=== PATIENT | male | born 1965 | race Caucasian/White ===

== ENCOUNTER 2016-06-06 17:08 | Emergency (ER) | payer MEDICAID ==
[~2016-06-06] VITALS: Wt 60.5 kg
[~2016-06-06 17:08] MED LIST: BACTDS PO; CEPH-443 PO; CHOL400T10 PO; LEVE250T66 PO; LORA10TA3 PO; NAPR-688 PO; TAMS0.4C2 PO
[2016-06-06] MEDS ORDERED: ACETAMINOPHEN 325 MG TAB PO ONE (19:30)
[2016-06-06] MEDS ORDERED: ACET325T33 PO (20:13)
--- NOTE | 2016-06-06 21:34 | ERD ---
ER Documentation Chief Complaint Date/Time DATE: 06/06/16 TIME: 21:29 Chief Complaint headache with blurry vision with high blood pressure. no neuro deficit HPI This is a 50-year-old male who presents to the emergency department complaining of global headache for the past 3 days. Patient states that he rates around 8 out of 10. He states that he was at the [facility] today in which they told him he had a high blood pressure and that is why he came to the ER. Patient denies any nausea, vomiting, lethargy or trouble behavior. Patient states that he does have blurry vision ROS All systems reviewed and are negative except as per history of present illness. Medications Home Meds Active Scripts Acetaminophen* (Tylenol*) 325 Mg Tablet, 2 TAB PO Q6 Y for PAIN AND OR ELEVATED TEMP, #20 TAB Prov:OSMIN SIMS PA-C 06/06/16 Sulfamethoxazole-Trimethoprim* (Bactrim* DS) 800-160 Mg Tab, 1 TAB PO BID for 10 Days, TAB Prov:NANDINI RUANO MD 10/24/15 Cephalexin* (Keflex*) 500 Mg Capsule, 500 MG PO QID for 10 Days, CAP Prov:NANDINI RUANO MD 10/24/15 Reported Medications Naproxen* (Naproxen*) 500 Mg Tablet, 500 MG PO BID Y for PAIN AND/OR INFLAMMATION, TAB 10/24/15 Loratadine* (Loratadine*) 10 Mg Tablet, 10 MG PO DAILY, #30 TAB 10/24/15 Cholecalciferol* (Vitamin D*) 400 Unit Tablet, 400 UNIT PO DAILY, TAB 10/24/15 Tamsulosin Hcl* (Tamsulosin Hcl*) 0.4 Mg Cap.er.24h, 0.8 MG PO HS, CAP 10/24/15 Levetiracetam* (Keppra*) 250 Mg Tab, 250 MG PO BID, TAB 10/24/15 Allergies Allergies: Coded Allergies: No Known Allergy (Unverified , 10/24/15) PMhx/Soc History of Surgery: No Anesthesia Reaction: No Hx Neurological Disorder: No Hx Respiratory Disorders: Yes (copd; bph; ra; hep c) Hx Cardiac Disorders: No Hx Psychiatric Problems: No Hx Miscellaneous Medical Probl: No Hx Alcohol Use: No Hx Substance Use: No Hx Tobacco Use: No Smoking Status: Never smoker Physical Exam Vitals Vital Signs Date Time Temp Pulse Resp B/P Pulse Ox O2 Delivery O2 Flow Rate FiO2 06/06/16 17:17 98.8 72 20 139/91 98 Physical Exam GENERAL: well-developed/well-nourished, in no apparent distress, non-toxic appearing HENT: NC/AT, bilateral tympanic membrane is normal with good cone of light, nares patent, oropharynx clear without exudates EYES: Conjunctiva normal, PERRLA, EOMI, no nystagmus noted NECK: Supple, no lymphadenopathy PULM: CTA bilaterally, no rales, rhonchi, or wheezing heard CV: Normal S1S2, RRR, good capillary refill GI: Soft, non-distended, normal bowel sounds, non-tender BACK: No midline tenderness, no masses, No CVAT EXT: No clubbing, cyanosis, or edema NEURO: Alert and orientated to person, place, and time. CN II-IIX intact. Gait and coordination were normal. Hand transit planning manager strength were equal and within normal limits SKIN: Intact, normal turgor PSYCH: Normal mood and mentation, patient denied SI Results 24 hrs Current Medications Medications (Trade) Dose Ordered Sig/Adilene Route PRN Reason Start Time Stop Time Status Last Admin Dose Admin Acetaminophen (Tylenol Tab) 650 mg ONCE ONCE PO 06/06/16 19:30 06/06/16 19:31 DC 06/06/16 19:54 Procedures/MDM This is a 50-year-old male presenting to the emergency room complaining of global headache for the past 3 days. Patient states that he was seen at [facility] today and he told me had high blood pressure. Patient blood pressure on triage was 139/91, I have repeated the blood pressure in the ED and it was 149/ 57. Patient had a normal neurological exam. Visual acuity did show decreased acuity left greater than right. I discussed with patient that it is suitable for him to follow-up with the clinic again for blood pressure, patient states that he came here because he is homeless and he wants to find a way to go to the [facility]. My differential diagnoses include tension, migraine, and cluster headache, overuse medication headache, subarachnoid hemorrhage, meningitis, stroke. Pain relief Tylenol was given in the ED with some improvement. A CT scan of the head was done, radiologist stated: 1. No intracranial hemorrhage, mass effect or midline shift. 2. Metallic mesh in the medial floor of the right orbit. Correlate with surgical history. Patient is suitable to follow-up with his primary care physician for further evaluation and management. Instructions on shelters for homeless was given. Patient is neurovascular intact for discharge. He understands and agrees with plan Patient's blood pressure was elevated (>120/80) but appears stable without evidence of hypertension emergency or urgency. The patient was counseled about the risks of hypertension and urged to pursue outpatient monitoring and therapy within a week with their primary care physician. Departure Diagnosis: Primary Impression: Headache Headache type: unspecified Headache chronicity pattern: chronic headache Intractability: not intractable Qualified Code: R51 - Chronic nonintractable headache, unspecified headache type Condition: Stable Patient Instructions: Tension Headaches, Self-Care for Headaches Referrals: NO PRIMARY,CARE PHYSICIAN (PCP) COMMUNITY CLINIC (SP) Usted se diaz hecho un examen mdico de control que le indica que no est en tereso condicin que requiera tratamiento urgente en el Departamento de Emergencia. Un estudio ms profundo y el tratamiento de thapa condicin pueden esperar sin ningn riesgo hasta que usted sea atendida/o en el consultorio de thapa mdico o tereso cl jennifer. Es responsabilidad suya arreglar tereso cecily para el seguimiento del kathya. MANEJO DE CONDICIONES NO URGENTES EN EL FUTURO 1) Si usted tiene un mdico de atencin primaria: Usted debera llamar a thapa mdico de atencin primaria antes de venir al departamento de emergencia. Despus de las horas de consultorio, thapa doctor o thapa asociado/a est disponible por telfono. El mdico o enfermero de jonathon en el servicio telefnico puede asesorarle por rafael medio para atender el problema, o kathya contrario se puede programar tereso cecily. 2) Si usted no tiene un mdico de atencin primaria: Llame al mdico o clnica de referencia que aparece abajo darinel las horas de consultorio para hacer tereso cecily para que le vean. CLINICAS: [facility] [phone] [facility] [phone] [facility] [phone] [place] [address] [phone] [place] [address] [phone] [facility]. [phone] [address] Additional Instructions: Visite a thapa mdico maana para un EXAMEN.Regrese a estas instalaciones si no se mejora abbie esperbamos o abbie le dijimos. [place] toda la medicina leigha y abbie se le indic. Regrese a estas instalaciones si no se mejora abbie esperbamos o abbie le dijimos. OSMIN SIMS PA-C Jun 06, 2016 21:34
--- NOTE | 2016-06-06 21:46 | RADRPT ---
PROCEDURE: CT Brain without contrast. CLINICAL INDICATION: Headache with vision changes. TECHNIQUE: A CT of the brain was performed on a multidetector CT scanner utilizing axial sections from the skull base through the vertex without contrast. Images were reviewed on a high-resolution [employer] workstation. Exam CTDI = 44.68 mGy and the DLP = 720.23 mGy-cm. One or more of the following dose reduction techniques were used: Automated exposure control Adjustment of the mA and/or kV according to patient size. Use of iterative reconstruction technique. COMPARISON: None available FINDINGS: There is no evidence of intracranial hemorrhage, mass effect or midline shift. No abnormal intra-ax ial or extra-axial fluid collections are seen. The density of the brain is normal and the raza/whit e matter differentiation is well preserved. The osseous structures and visualized paranasal sinuse s are unremarkable. Partially imaged metallic mesh in the floor of the right orbit. IMPRESSION: 1. No intracranial hemorrhage, mass effect or midline shift. 2. Metallic mesh in the medial floor of the right orbit. Correlate with surgical history. RPTAT: HHO .Argentina Morrison MD, MD Date Time Electronically viewed and signed by .Argentina Morrison MD, on 06/06/2016 21:46 .O/
[2016-06-06 22:06] VITALS: BP 139/93; PULSE 75; RESP 18; TEMP 98.1
== END 2016-06-06 22:07 | disposition home or self-care (01) ==
LOC: FTE 17:08
DX: R51 Headache (principal); J44.9 Chronic obstructive pulmonary disease, unspecified; I10 Essential (primary) hypertension
CPT/HCPCS: 70450; Z7502; Z7610

== ENCOUNTER 2016-11-06 13:43 | Emergency (ER) | payer OTHER ==
[~2016-11-06] VITALS: Ht 157.5 cm; Wt 65.0 kg
[~2016-11-06 13:43] MED LIST changes: +ACET325T33 PO
[2016-11-06 13:47] VITALS: Ht 157.5 cm; Wt 65.0 kg
[2016-11-06] MEDS ORDERED: GABA100C14 PO (20:23)
[2016-11-06] MEDS ORDERED: LEVE250T5 PO (20:23)
[2016-11-06] MEDS ORDERED: SENN-53 PO (20:24)
[2016-11-06] MEDS ORDERED: POLY17PO6 PO ×2 (20:24→22:07)
[2016-11-06] MEDS ORDERED: DOCU-144 PO (20:24)
[2016-11-06] MEDS ORDERED: FLUT16SP17 NASAL (20:25)
[2016-11-06] MEDS ORDERED: ALBU18HF INHALATION (20:25)
--- NOTE | 2016-11-06 21:12 | ERA ---
ER Documentation Chief Complaint Date/Time DATE: 11/06/16 TIME: 21:11 Chief Complaint HERNIA AND PROSTATE ENLARGEMENT HPI The patient is 51-year-old male, presenting to the ER because of of chronic left inguinal hernia pain, constipation. He denies fever, chills, neck pain, chest pain, abdominal pain, nausea, vomiting, diarrhea. He denies smoking, drinking, smokes marijuana Past medical history: Hepatitis C, seizure, COPD, hypertension, depression Past surgical history: None ROS All systems reviewed and are negative except as per history of present illness. Medications Home Meds Active Scripts Polyethylene Glycol* (Miralax*) 17 Gm Powd.pack, 17 GM PO DAILY, #7 Prov:NANDINI RUANO MD 11/06/16 Reported Medications Fluticasone Propionate* (Fluticasone Propionate* Nasal) 50 Mcg/[place] - 16 Gm [place].susp, 1 SPRAY NASAL DAILY, #1 BOTTLE TO EACH NOSTRIL 11/06/16 Albuterol Sulfate* (Ventolin HFA*) 18 Gm Hfa.aer.ad, 2 PUFF INHALATION Q4H, #1 INHALER 11/06/16 Polyethylene Glycol* (Miralax*) 17 Gm Powd.pack, 17 GM PO DAILY, #30 PACKET 11/06/16 Sennosides* (Senna Lax*) 8.6 Mg Tablet, 2 TAB PO DAILY, TAB 11/06/16 Docusate Sodium* (Colace*) 100 Mg Capsule, 100 MG PO BID, #60 CAP 11/06/16 Gabapentin* (Gabapentin*) 100 Mg Capsule, 100 MG PO TID, #90 CAP 11/06/16 Levetiracetam* (Levetiracetam*) 250 Mg Tablet, 500 MG PO BID, TAB 11/06/16 Naproxen* (Naproxen*) 500 Mg Tablet, 500 MG PO BID Y for PAIN AND/OR INFLAMMATION, TAB 10/24/15 Tamsulosin Hcl* (Tamsulosin Hcl*) 0.4 Mg Cap.er.24h, 0.8 MG PO HS, CAP 10/24/15 Discontinued Reported Medications Loratadine* (Loratadine*) 10 Mg Tablet, 10 MG PO DAILY, #30 TAB 10/24/15 Cholecalciferol* (Vitamin D*) 400 Unit Tablet, 400 UNIT PO DAILY, TAB 10/24/15 Levetiracetam* (Keppra*) 250 Mg Tab, 250 MG PO BID, TAB 10/24/15 Discontinued Scripts Acetaminophen* (Tylenol*) 325 Mg Tablet, 2 TAB PO Q6 Y for PAIN AND OR ELEVATED TEMP, #20 TAB Prov:OSMIN SIMS PA-C 06/06/16 Sulfamethoxazole-Trimethoprim* (Bactrim* DS) 800-160 Mg Tab, 1 TAB PO BID for 10 Days, TAB Prov:NANDINI RUANO MD 10/24/15 Cephalexin* (Keflex*) 500 Mg Capsule, 500 MG PO QID for 10 Days, CAP Prov:NANDINI RUANO MD 10/24/15 Allergies Allergies: Coded Allergies: No Known Allergy (Unverified , 11/06/16) PMhx/Soc History of Surgery: Yes (NOSE, RT EYE) Anesthesia Reaction: No Hx Neurological Disorder: No Hx Respiratory Disorders: Yes (ASTHMA ) Hx Cardiac Disorders: Yes (HTN ) Hx Psychiatric Problems: Yes (ANXIETY ) Hx Miscellaneous Medical Probl: Yes (arthritis, hep c) Hx Alcohol Use: Yes (DAILY ) Hx Substance Use: Yes (MARIJUANA ) Hx Tobacco Use: No Smoking Status: Current some day smoker Physical Exam Vitals Vital Signs Date Time Temp Pulse Resp B/P Pulse Ox O2 Delivery O2 Flow Rate FiO2 11/06/16 20:10 97.9 11/06/16 20:05 71 18 145/102 100 Room Air 11/06/16 13:47 98.8 72 18 132/74 98 Physical Exam Const: No acute distress. Head: Atraumatic. Eyes: Normal Conjunctiva. ENT: Normal External Ears, Nose and Mouth. Neck: Full range of motion. No meningismus. Resp: Clear to auscultation bilaterally. Cardio: Regular rate and rhythm. Abd: Soft, non distended, normal bowel sounds, small, reducible, left inguinal hernia. No rigidity, rebound, CVA tenderness Skin: No petechiae or rashes. Back: No midline or flank tenderness. Ext: No cyanosis, or edema. Neur: Awake and alert. No focal deficit Psych: Normal Mood and Affect. Results 24 hrs Laboratory Tests Test 11/06/16 21:50 Bedside Urine pH (LAB) 7.0 Bedside Urine Protein (LAB) Negative Bedside Urine Glucose (UA) Negative Bedside Urine Ketones (LAB) Negative Bedside Urine Blood Trace-intact Bedside Urine Nitrite (LAB) Negative Bedside Urine Leukocyte Esterase (L Negative Procedures/MDM MEDICAL MAKING DECISION: The patient is a 51-year-old male, presenting with chronic left inguinal hernia, worse with constipation. He is stable for outpatient follow-up The differential diagnoses considered include but are not limited to incarcerated/strangulated inguinal hernia, cholelithiasis, cholecystitis, cystitis, pancreatitis, hepatitis, gastritis, peptic ulcer disease, gastric ulcer, appendicitis, diverticulitis, cholangitis, choledocholithiasis, partial small bowel obstruction. Departure Diagnosis: Primary Impression: Inguinal hernia Additional Impression: Constipation Condition: Good Comments He was discharged with MiraLAX I discussed the findings with the patient. I advised the patient to follow-up with the primary physician or at [facility] for elective inguinal herniorrhaphy in about 1-2 days, sooner if needed and return if any concern. The patient's blood pressure was elevated (>120/80) but appears stable without evidence of hypertension emergency or urgency. The patient was counseled about the risks of hypertension and urged to pursue outpatient monitoring and therapy within a week with their primary care physician. NANDINI RUANO MD Nov 06, 2016 21:12
[2016-11-06 21:47] LABS: URINE BLOOD (Dip) POC Trace-intact (NEGATIVE)
[2016-11-06 22:50] VITALS: BP 132/87; PULSE 75; RESP 16; TEMP 97.2
== END 2016-11-06 22:50 | disposition home or self-care (01) ==
LOC: E/R 13:43
DX: K40.90 Unilateral inguinal hernia, without obstruction or gangrene, not specified as recurrent (principal); K59.00 Constipation, unspecified; J44.9 Chronic obstructive pulmonary disease, unspecified; I10 Essential (primary) hypertension; J45.909 Unspecified asthma, uncomplicated; F17.210 Nicotine dependence, cigarettes, uncomplicated
CPT/HCPCS: 81003; Z7502; Z7610; 99283

== ENCOUNTER 2017-03-11 06:38 | Day surgery (SDC) | payer OTHER ==
[~2017-03-11] VITALS: Ht 157.5 cm; Wt 59.2 kg
[~2017-03-11 06:38] MED LIST changes: -ACET325T33 PO; +ALBU18HF INHALATION; -BACTDS PO; -CEPH-443 PO; -CHOL400T10 PO; +DOCU-144 PO; +FLUT16SP17 NASAL; +GABA100C14 PO; +LEVE250T5 PO; -LEVE250T66 PO; -LORA10TA3 PO; +POLY17PO6 PO; +SENN-53 PO
[2017-03-11 07:24] VITALS: Ht 157.5 cm; Wt 59.2 kg
[2017-03-11] MEDS ORDERED: KEPPRA (07:34)
[2017-03-11] MEDS ORDERED: FINASTERIDE (07:34)
[2017-03-11] MEDS ORDERED: PROPOFOL 20 ML ONE (07:56)
[2017-03-11] MEDS ORDERED: MIDAZOLAM 1 MG/ML 2 ML INJ ONE (07:57)
[2017-03-11] MEDS ORDERED: FENTAnyl 50 MCG/ML VIAL ONE (07:57)
--- NOTE | 2017-03-11 08:22 | OPPN ---
Date/Time of Note Date/Time of Note DATE: 03/11/17 TIME: 08:21 Operative Report Preoperative Diagnosis Screening colonoscopy Postoperative Diagnosis Small right colon polyp was removed Internal hemorrhoids Operation/Procedure Performed Colonoscopy and biopsy Surgeon see signature line customer assistance representative None Anesthesia: MAC Estimated blood loss: none Transfusion Required none Specimen Colon polyp Grafts/Implants none Complications none QUINCY HAMILTON MD Mar 11, 2017 08:22
--- NOTE | 2017-03-11 08:22 | OPPN ---
Date/Time of Note Date/Time of Note DATE: 03/11/17 TIME: 08:21 Operative Report Preoperative Diagnosis Screening colonoscopy Postoperative Diagnosis Small right colon polyp was removed Internal hemorrhoids Operation/Procedure Performed Colonoscopy and biopsy Surgeon see signature line executive personal assistant None Anesthesia: MAC Estimated blood loss: none Transfusion Required none Specimen Colon polyp Grafts/Implants none Complications none QUINCY HAMILTON MD Mar 11, 2017 08:22
[2017-03-11 08:55] VITALS: BP 103/70; PULSE 67; RESP 20
--- NOTE | 2017-03-11 09:45 | GILP ---
DATE OF PROCEDURE: NAME OF PROCEDURES: Colonoscopy and biopsy. SURGEON: Quincy Guevara MD PREOPERATIVE DIAGNOSIS: Screening colonoscopy. POSTOPERATIVE DIAGNOSES 1. Colonoscopy all the way to the cecum. 2. Small right colon polyp was removed using the biopsy forceps. 3. Internal hemorrhoids. INDICATION FOR THE PROCEDURE: Mr. Clyde Serrato is a 51-year-old male patient who was scheduled for s creening colonoscopy. The procedure and possible complications were well explained to the patient. The patient understood and consented to the procedure. DESCRIPTION OF PROCEDURE: Under the influence of anesthesia, the colonoscope was carefully introduc ed in the rectum and under direct vision, it was advanced all the way to the cecum. FINDINGS: The patient had a small right colon polyp and it was removed using the biopsy forceps. H e was noted to have internal hemorrhoids. He tolerated the procedure very well and there was no complication from the procedure. At the end o f the procedure, he was awake with stable vital signs and he was discharged home to the care of his family. IMPRESSION: 1. Colonoscopy all the way to the cecum. 2. Small right colon polyp was removed using the biopsy forceps. 3. Internal hemorrhoids. PLAN: Next screening colonoscopy in 10 years. Dictated By: QUINCY CUNNINGHAM/JULITO Conf#: [id number] DID#: [id number]
== END 2017-03-11 10:59 | disposition home or self-care (01) ==
LOC: GIL 06:38
PROVIDERS: ATTEND Internal Medicine Gastroenterology
DX: Z12.11 Encounter for screening for malignant neoplasm of colon (principal); K64.8 Other hemorrhoids
CPT/HCPCS: 45380; 88305; J2250; J3010; Z7610

== ENCOUNTER 2018-07-10 14:49 | Emergency (ER) | payer OTHER ==
[~2018-07-10] VITALS: Wt 61.3 kg
[~2018-07-10 14:49] MED LIST changes: +FINASTERIDE; -GABA100C14 PO; +KEPPRA; -LEVE250T5 PO; -SENN-53 PO
[2018-07-10] MEDS ORDERED: KETOROLAC 30 MG INJ IM STA (22:26)
[2018-07-10] MEDS ORDERED: ONDANSETRON (ODT) 4 MG TAB ODT STA (22:26)
[2018-07-10] MEDS ORDERED: HYDROCODONE/APAP (5/325) TAB PO ONE (22:30)
[2018-07-11] MEDS ORDERED: IBUP-1542 PO (00:15)
[2018-07-11] MEDS ORDERED: TRAM50TA2 PO (00:15)
[2018-07-11] MEDS ORDERED: ONDA4TAB14 PO (00:16)
[2018-07-11] MEDS ORDERED: ONDANSETRON (ODT) 4 MG TAB ODT STA (00:19)
[2018-07-11] MEDS ORDERED: morphine 2 MG INJ IM STA (00:19)
[2018-07-11] MEDS ORDERED: HYDROCODONE/APAP (5/325) TAB PO ONE (00:30)
[2018-07-11 00:34] VITALS: BP 157/90; PULSE 71; RESP 18
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
== END 2018-07-11 01:14 | disposition home or self-care (01) ==
LOC: FTE 14:49
DX: M54.2 Cervicalgia (principal); J45.909 Unspecified asthma, uncomplicated; F17.210 Nicotine dependence, cigarettes, uncomplicated; M25.522 Pain in left elbow; R51 Headache
CPT/HCPCS: 70140; 70450; 71046; 72125; 80307; 96372; J1885; J2270; Z7502; Z7610

== ENCOUNTER 2018-11-03 07:49 | Emergency (ER) | payer OTHER ==
[~2018-11-03] VITALS: Ht 157.5 cm; Wt 56.8 kg
[~2018-11-03 07:49] MED LIST changes: +IBUP-1542 PO; +ONDA4TAB14 PO; +TRAM50TA2 PO
[2018-11-03 07:51] VITALS: BP 134/78; PULSE 82; RESP 19; Ht 157.5 cm; Wt 56.8 kg
[2018-11-03] MEDS ORDERED: DOCU-144 PO (08:29)
--- NOTE | 2018-11-03 09:16 | ERD ---
ER Documentation Chief Complaint Chief Complaint sent by PCP to "see if I need hernia surgery". R.pelvic pain swellingx3 wee HPI 53-year-old male presenting for evaluation of possible hernia to the right inguinal region. He states he had hernia in the past he was recommended to come to the ER for evaluation to see if he has a return of a hernia. He has some pain to the area. Denies any problems with bowel movements and denies any vomiting. Denies fevers. Denies other medical problems. NKDA. Surgical history: Hernia repair. Social history denies ROS All systems reviewed and are negative except as per history of present illness. Medications Home Meds Active Scripts Docusate Sodium* (Colace*) 100 Mg Capsule, 100 MG PO TID, #30 CAP Prov:REMI ORELLANA PA-C 11/03/18 Ondansetron (Ondansetron Odt) 4 Mg Tab.rapdis, 4 MG PO Q6H PRN for NAUSEA AND/OR VOMITING, #10 TAB Prov:COLLETTE PENA NP 07/11/18 Tramadol HCl (Tramadol HCl) 50 Mg Tablet, 50 MG PO Q6 PRN for SEVERE PAIN LEVEL 7-10, #5 TAB Prov:COLLETTE PENA V PERSONAL CARER 07/11/18 Ibuprofen* (Motrin*) 600 Mg Tab, 600 MG PO Q6 for PAIN/INFLAMMATION, #30 TAB Prov:COLLETTE PENA V PERSONAL CARER 07/11/18 Reported Medications [Keppra] No Conflict Check 03/11/17 [Finasteride] No Conflict Check 03/11/17 Fluticasone Propionate* (Fluticasone Propionate* Nasal) 50 Mcg/Zearing - 16 Gm Zearing.susp, 1 SPRAY NASAL DAILY, #1 BOTTLE TO EACH NOSTRIL 11/06/16 Albuterol Sulfate* (Ventolin HFA*) 18 Gm Hfa.aer.ad, 2 PUFF INHALATION Q4H, #1 INHALER 11/06/16 Polyethylene Glycol* (Miralax*) 17 Gm Powd.pack, 17 GM PO DAILY, #30 PACKET 11/06/16 Docusate Sodium* (Colace*) 100 Mg Capsule, 100 MG PO BID, #60 CAP 11/06/16 Naproxen* (Naproxen*) 500 Mg Tablet, 500 MG PO BID PRN for PAIN AND/OR INFLAMMATION, TAB 10/24/15 Tamsulosin Hcl* (Tamsulosin Hcl*) 0.4 Mg Cap.er.24h, 0.8 MG PO HS, CAP 10/24/15 Allergies Allergies: Coded Allergies: No Known Allergy (Unverified , 11/06/16) PMhx/Soc History of Surgery: Yes (HERNIA SURGERY, CHOLECYSECTOMY) Anesthesia Reaction: No Hx Neurological Disorder: Yes (SEIZURES) Hx Respiratory Disorders: Yes (BRONICHIAL ASTHMA) Hx Cardiac Disorders: No Hx Psychiatric Problems: No Hx Miscellaneous Medical Probl: No Hx Alcohol Use: Yes (OCCASSIONALLY) Hx Substance Use: No Hx Tobacco Use: Yes (OCCASSIONALLY) Smoking Status: Current some day smoker FmHx Family History: No diabetes, No coronary disease, No other Physical Exam Vitals Vital Signs Date Temp Pulse Resp B/P (MAP) Pulse Ox O2 O2 Flow FiO2 Time Delivery Rate 11/03/18 97.5 82 19 134/78 98 07:51 (96) Physical Exam GENERAL: The patient is well-appearing, well-nourished, in no acute distress HEENT: Atraumatic. Conjunctivae are pink. Pupils equal, round, and reactive to light. There is no scleral icterus. Tympanic membranes clear bilaterally. Oropharynx clear. NECK: C-spine is soft and supple. There is no meningismus. There is no cervical lymphadenopathy. CHEST: Clear to auscultation bilaterally. There are no rales, wheezes or rhonchi. HEART: Regular rate and rhythm. No murmurs, clicks, rubs or gallops. ABDOMEN: Reducible right-sided inguinal hernia. Procedures/MDM MDM: 53-year-old male presenting with a hernia. I have low suspicion for incarceration and I do not feel there is blood work indicated or imaging. Patient will likely need surgery however there is no emergent condition at this time. Patient is recommended to follow-up with primary care for surgical consultation. Patient is discharged with strict ER precautions. All questions answered at discharge Departure Diagnosis: Primary Impression: Hernia Condition: Stable Patient Instructions: Hernia (Inguinal, Ventral, Umbilical) Referrals: MATT ORELLANA MD [facility] YOU HAVE RECEIVED A MEDICAL SCREENING EXAM AND THE RESULTS INDICATE THAT YOU DO NOT HAVE A CONDITION THAT REQUIRES URGENT TREATMENT IN THE EMERGENCY DEPARTMENT. FURTHER EVALUATION AND TREATMENT OF YOUR CONDITION CAN WAIT UNTIL YOU ARE SEEN IN YOUR DOCTORS OFFICE WITHIN THE NEXT 1-2 DAYS. IT IS YOUR RESPONSIBILITY TO MAKE AN APPOINTMENT FOR FOLOW-UP CARE. IF YOU HAVE A PRIMARY DOCTOR --you should call your primary doctor and schedule an appointment IF YOU DO NOT HAVE A PRIMARY DOCTOR YOU CAN CALL OUR PHYSICIAN REFERRAL HOTLINE AT IF YOU CAN NOT AFFORD TO SEE A PHYSICIAN YOU CAN CHOSE FROM THE FOLLOWING [facility] [address] [facility] [address] [facility] [address] [facility] [address] [facility] [address] [facility]. [facility]. [address] Additional Instructions: FOLLOW UP WITH YOUR PRIMARY CARE PHYSICIAN TOMORROW.Return to this facility if you are not improving as expected. REMI ORELLANA PA-C Nov 03, 2018 09:16
== END 2018-11-03 08:48 | disposition home or self-care (01) ==
LOC: FTE 07:49
DX: K40.90 Unilateral inguinal hernia, without obstruction or gangrene, not specified as recurrent (principal); J45.909 Unspecified asthma, uncomplicated; F17.210 Nicotine dependence, cigarettes, uncomplicated
CPT/HCPCS: 99282

== ENCOUNTER 2018-12-18 07:04 | Observation (INO) | payer OTHER ==
[2018-12-18] VITALS (17 sets, daily range): BP systolic 128–165; BP diastolic 80–108; PULSE 66–97; RESP 14–20; Ht 154.9 cm; Wt 56.7 kg
[~2018-12-18] VITALS: Ht 154.9 cm; Wt 56.7 kg
[~2018-12-18 07:04] MED LIST changes: +ACET-141 PO; +CEFAZOLIN 2 GM/50 ML (PMX) 50 ML IVPB ONE; +CEPH-443 PO; +FINA5TAB4 PO; +FLUT200B INHALATION; +GUAI-637 PO; +GUAI120S25 PO; +LEVE-5 PO; +MULTI PO; +TERA10CA3 PO
[2018-12-18] MEDS: SOD CHLORIDE 0.9% 1,000 ML IV SCH ×2 (08:10→15:16)
[2018-12-18] MEDS ORDERED: BUPIVACAINE 0.25% (MPF) 30 ML INJ ONE (08:46)
--- NOTE | 2018-12-18 08:55 | PREAC ---
Date/Time of Note Date/Time of Note DATE: 12/18/18 TIME: 08:53 Anesthesia Eval and Record Evaluation Time Pre-Procedure Interview DATE: 12/18/18 TIME: 08:53 Age 53 Sex male NPO: 8 hrs Preoperative diagnosis right inguinal hernia Planned procedure open right inguinal hernia with mesh Past Medical History Past Medical History: Includes Pulm: Asthma Neuro: Seizure disorder (2 years ago) Surgery & Anesthesia Issues No known issue Meds Anticoagulation: No Beta Saud within 24 hr: No Reason Beta Saud not given: Pt. not on B-Saud Active Scripts Docusate Sodium* (Colace*) 100 Mg Capsule, 100 MG PO TID, #30 CAP Prov:REMI ORELLANA PA-C 11/03/18 Ondansetron (Ondansetron Odt) 4 Mg Tab.rapdis, 4 MG PO Q6H PRN for NAUSEA AND/OR VOMITING, #10 TAB Prov:COLLETTE PENA V CYLINDER BLOCK MECHANIC 07/11/18 Tramadol HCl (Tramadol HCl) 50 Mg Tablet, 50 MG PO Q6 PRN for SEVERE PAIN LEVEL 7-10, #5 TAB Prov:COLLETTE PENA V CYLINDER BLOCK MECHANIC 07/11/18 Ibuprofen* (Motrin*) 600 Mg Tab, 600 MG PO Q6 for PAIN/INFLAMMATION, #30 TAB Prov:COLLETTE PENA V CYLINDER BLOCK MECHANIC 07/11/18 Reported Medications [Keppra] No Conflict Check 03/11/17 [Finasteride] No Conflict Check 03/11/17 Fluticasone Propionate* (Fluticasone Propionate* Nasal) 50 Mcg/Muir - 16 Gm Muir.susp, 1 SPRAY NASAL DAILY, #1 BOTTLE TO EACH NOSTRIL 11/06/16 Albuterol Sulfate* (Ventolin HFA*) 18 Gm Hfa.aer.ad, 2 PUFF INHALATION Q4H, #1 INHALER 11/06/16 Polyethylene Glycol* (Miralax*) 17 Gm Powd.pack, 17 GM PO DAILY, #30 PACKET 11/06/16 Docusate Sodium* (Colace*) 100 Mg Capsule, 100 MG PO BID, #60 CAP 11/06/16 Naproxen* (Naproxen*) 500 Mg Tablet, 500 MG PO BID PRN for PAIN AND/OR INFLAMMATION, TAB 10/24/15 Tamsulosin Hcl* (Tamsulosin Hcl*) 0.4 Mg Cap.er.24h, 0.8 MG PO HS, CAP 10/24/15 Current Medications Sodium Chloride 1,000 ml @ 75 mls/hr [id number] IV Last administered on 12/18/18at 08:10; Admin Dose 75 MLS/HR; Start 12/18/18 at 06:00; Stop 12/18/18 at 20:00 Meds reviewed: Yes Allergies Coded Allergies: cinnamon (Verified Allergy, Intermediate, INFECTION, 11/03/18) cocaine (Verified Allergy, Intermediate, INFECTION, 11/03/18) ibuprofen (Verified Allergy, Mild, 11/03/18) Allergies Reviewed: Yes Labs/Studies Labs Reviewed: Reviewed by anesthesiologist test: N/A Studies: ECG (sr), CXR (nl) Pre-procedure Exam Last vitals Vital Signs Date Temp Pulse Resp B/P (MAP) Pulse Ox O2 O2 Flow FiO2 Time Delivery Rate 12/18/18 18 128/88 98 Room Air 08:19 (101) Airway: Adequate mouth opening Mallampati: Mallampati I Teeth: Abnormal (missing) Lung: Normal Heart: Normal ASA Physical Status ASA physical status: 2 Emergency: None Planned Anesthetic General/MAC: LMA Nerve block: TAP (right) Planned Pain Management Single shot nerve block, Parenteral pain med Pre-operative Attestations Prior to commencing anesthesia and surgery, the patient was re-evaluated, there was verification of: *The patient's identity *The results of appropriate recent lab work and preoperative vital signs *The above evaluation not changing prior to induction *Anesthetic plan, risk benefits, alternative and complications discussed with patient/family; questions answered; patient/family understands, accepts and wishes to proceed. JATIN SEGOVIA MD Dec 18, 2018 08:55
[2018-12-18] MEDS ORDERED: ROCURONIUM 50 MG INJ ONE (08:58)
[2018-12-18] MEDS ORDERED: ONDANSETRON 4 MG INJ ONE (08:58)
[2018-12-18] MEDS ORDERED: PROPOFOL 20 ML ONE (08:58)
[2018-12-18] MEDS ORDERED: ROPIVACAINE 0.5 % 30 ML VIAL ONE (08:58)
[2018-12-18] MEDS ORDERED: METOCLOPRAMIDE 10 MG INJ ONE (08:58)
[2018-12-18] MEDS ORDERED: MIDAZOLAM 1 MG/ML 2 ML INJ ONE (08:58)
[2018-12-18] MEDS ORDERED: OXYCODONE/ACETAMINOPHEN (5/325) TAB PO PRN ×2 (09:00)
[2018-12-18] MEDS ORDERED: FENTAnyl 50 MCG/ML VIAL IV PRN ×3 (09:00)
[2018-12-18] MEDS ORDERED: DIPHENHYDRAMINE 50 MG INJ IV PRN (09:00)
[2018-12-18] MEDS ORDERED: ONDANSETRON 4 MG INJ IV PRN (09:00)
[2018-12-18] MEDS ORDERED: MEPERIDINE 25 MG INJ IV PRN (09:00)
[2018-12-18] MEDS ORDERED: HYDROmorphONE 1 MG/5 ML IV SYRINGE IV PRN ×3 (09:00)
[2018-12-18] MEDS ORDERED: CEFAZOLIN 1 GM INJ ONE (09:09)
[2018-12-18] MEDS ORDERED: GLYCOPYRROLATE 0.4 MG INJ ONE (09:09)
[2018-12-18] MEDS ORDERED: PHENYLephrine (100 MCG/ML) 10ML SYG ONE (09:09)
[2018-12-18] MEDS ORDERED: NEOSTIGMINE 3 MG/3 ML SYRINGE ONE (09:09)
[2018-12-18] MEDS ORDERED: HYDROmorphONE 2 MG/ML SYG ONE (09:29)
[2018-12-18] MEDS ORDERED: POLYMYXIN/BACITRACIN 1L IRRIG IRR ONE (09:39)
--- NOTE | 2018-12-18 09:54 | OPR ---
Date/Time of Note Date/Time of Note DATE: 12/18/18 TIME: 09:51 Operative Report Procedure Date: Dec 18, 2018 Preoperative Diagnosis right incarcerated inguinal hernia Postoperative Diagnosis same Operation/Procedure Performed open right incarcerated inguinal hernia repair with medium ultrapro hernia system mesh Surgeon see signature line Business Advisor none Anesthesia Type: general Estimated Blood Loss: 0 - 10 ml's Transfusion none Specimen none Grafts/Implants none Complications none Pt Condition Post Procedure: stable Indications This is a 53-year-old male with a incarcerated right inguinal hernia. He request surgical repair. Risks alternatives benefits and personal were discussed the patient. Patient expressed understanding and consents to the operation. Procedure Description Patient is taken to the OR and prepped and draped in usual sterile fashion. Surgical timeout was performed. IV antibiotics were given. Right inguinal oblique incision was made at the 10 blade. Dissection with cautery is carried down to the external oblique fascia. The externally fascia was opened with a 15 blade. This incision is extended medial fairly lateral sparely with Metzenbaum scissors. Cord structures identified encircled with a Adrienne drain. Incarcerated indirect hernia is identified. Lysis of adhesions performed and the incarcerated contents were manually reduced. This inguinal hernia defect was then bolstered with the disc portion of the ultra pro hernia system mesh. The disc is secured in place the running Prolene from the pubic tubercle along the shelving is unlimited. Superiorly the disc is secured to the internal oblique with interrupted 0 Vicryl. [place]lay mesh was secured in a similar fashion with a running 0 Prolene from the pubic tubercle along the shelving edge of the inguinal ligament. Straps are created and we are proximally around the cord structures with interrupted 0 Prolene to recreate the inguinal ring. Onlay mesh was secured to the internal oblique with interrupted 3-0 Vicryl. External oblique is closed with running 3-0 Vicryl. Martin's fascia was closed with interrupted 3-0 Vicryl. Skin is closed in a inzorb observable skin stapler. A tap block was provided by the anesthesiologist at the beginning the case. Steri-Strips and dry dressings were applied. [place] DRIVER Dec 18, 2018 09:54
[2018-12-18] MEDS ORDERED: HYDROCODONE/APAP (5/325) TAB PO ONE (10:00)
--- NOTE | 2018-12-18 12:26 | PAC ---
Date/Time of Note Date/Time of Note DATE: 12/18/18 TIME: 12:26 Post-Anesthesia Notes Post-Anesthesia Note Last documented vital signs Vital Signs Date Temp Pulse Resp B/P (MAP) Pulse Ox O2 O2 Flow FiO2 Time Delivery Rate 12/18/18 98.2 87 16 139/82 99 11:44 (101) 12/18/18 98.7 10:07 12/18/18 Mask 10:00 Activity: WNL Respiratory function: WNL Cardiovascular function: WNL Mental status: Baseline Pain reasonably controlled: Yes Hydration appropriate: Yes Nausea/Vomiting absent: No JATIN SEGOVIA MD Dec 18, 2018 12:26
[2018-12-18] MEDS ORDERED: GUAIFENESIN 20 MG/ML 5ML CUP PO PRN (14:30)
[2018-12-18] MEDS ORDERED: NAPROXEN 500 MG TAB PO PRN (14:30)
[2018-12-18] MEDS ORDERED: ALBUTEROL 18 GM INHALER INH PRN (14:30)
[2018-12-18] MEDS ORDERED: GUAIFENESIN/DM 5ML CUP PO PRN (14:30)
[2018-12-18] MEDS ORDERED: ALBUTEROL HFA 8 GM INHALER INH PRN (16:00)
[2018-12-18] MEDS: HYDROCODONE/APAP (5/325) TAB PO PRN ×3 (16:02→23:57)
[2018-12-18] MEDS: FINASTERIDE 5 MG TAB PO SCH (16:04)
[2018-12-18] MEDS: NAPROXEN 500 MG TAB PO SCH (18:18)
[2018-12-18] MEDS: LEVETIRACETAM 500 MG TAB PO SCH (20:06)
[2018-12-18] MEDS ORDERED: TERAZOSIN 5 MG CAP PO SCH (21:00)
[2018-12-18] MEDS: ACETAMINOPHEN 500 MG TAB PO PRN (22:08)
[2018-12-19 00:56] VITALS: BP 135/64; PULSE 70; RESP 18
[2018-12-19] MEDS ORDERED: MAGNESIUM HYDROXIDE 30ML CUP PO PRN (02:00)
[2018-12-19] MEDS: HYDROCODONE/APAP (5/325) TAB PO PRN ×2 (04:20→12:08)
[2018-12-19] MEDS ORDERED: NA PHOSPHATE/BIPHOS 133 ML ENEMA PR ONE (08:00)
[2018-12-19] MEDS ORDERED: DIPHENHYDRAMINE 50 MG INJ IV PRN (08:00)
[2018-12-19] MEDS: LEVETIRACETAM 500 MG TAB PO SCH (08:21)
[2018-12-19] MEDS: NAPROXEN 500 MG TAB PO SCH (08:21)
[2018-12-19] MEDS: FINASTERIDE 5 MG TAB PO SCH (08:21)
[2018-12-19 08:23] VITALS: BP 142/86; PULSE 76; RESP 18
[2018-12-19] MEDS ORDERED: FLUTICASONE 0.05% 16 GM NAS SPRAY NASAL SCH (09:00)
[2018-12-19] MEDS ORDERED: MULTIVITAMINS THERAPEUTIC TAB PO SCH (09:00)
[2018-12-19] MEDS: ACETAMINOPHEN 500 MG TAB PO PRN (12:36)
--- NOTE | 2018-12-19 14:29 | PN ---
DATE: 12/19/2018 Postop day #1 status post right inguinal hernia repair. SUBJECTIVE: No specific complaint. The patient has passed a lot of gas. Small amount of bowel move ment. Urinating without any problem. Tolerated diet. OBJECTIVE: GENERAL: Alert, awake, oriented, no acute distress. VITAL SIGNS: Temperature maximum today 98.7, heart rate 76, respiration 18, blood pressure 142/86, s aturation 99% on room air. HEART: Regular. LUNGS: Clear. ABDOMEN: Soft. Right groin dressing is intact. There is slight swelling of the right scrotum, but this is not tender. PLAN: The patient can be discharged home today with prescription for pain medication and instructed the patient to keep an ice bag on the groin for 24 hours. Instructed the nurse to make sure that the patient had a friend of the patient comes in and take him home or he gets a taxi and goes home. Dictated By: AMAURY MILLARD MD PS/NTS Conf#: [id number] DID#: [id number] CC: PARKER DRIVER MD;*EndCC*
== END 2018-12-19 15:30 | disposition home or self-care (01) ==
LOC: SDS 07:04 → REC 10:53 → SDS 10:53 → MS1 14:08
PROVIDERS: ADMIT Surgery; ATTEND Surgery
DX: K40.30 Unilateral inguinal hernia, with obstruction, without gangrene, not specified as recurrent (principal)
CPT/HCPCS: 49507; C1781; J0690; J1170; J1200; J2250; J2370; J2405; J2710; J2765; J2795; J7030; Z7500; Z7512; Z7610; G0378

== ENCOUNTER 2018-12-27 09:59 | Emergency (ER) | payer OTHER ==
[~2018-12-27] VITALS: Ht 154.9 cm; Wt 58.9 kg
[~2018-12-27 09:59] MED LIST changes: -CEFAZOLIN 2 GM/50 ML (PMX) 50 ML IVPB ONE; -DOCU-144 PO; -FINASTERIDE; -IBUP-1542 PO; -KEPPRA; -ONDA4TAB14 PO; -POLY17PO6 PO; -TAMS0.4C2 PO; -TRAM50TA2 PO
[2018-12-27 10:02] VITALS: Ht 154.9 cm; Wt 58.9 kg
[2018-12-27] MEDS ORDERED: morphine 4 MG/ML VIAL IV STA (10:14)
[2018-12-27] MEDS ORDERED: SOD CHLORIDE 0.9% 500 ML IV STA (10:14)
[2018-12-27] MEDS ORDERED: IOHEXOL 300MG/ML 150 ML BTL ONE (11:20)
[2018-12-27] MEDS ORDERED: SOD CHLORIDE 0.9% 100 ML ONE (11:20)
--- NOTE | 2018-12-27 11:40 | ERD ---
ER Documentation Chief Complaint Chief Complaint had hernia repair 9 days ago pain at site and drainage HPI 53-year-old male postop day 9 from a right inguinal hernia repair coming in for concern of infection patient states that it is more painful at the site and that there is drainage. Patient did have a bowel movement this morning. Denies any fever denies any dysuria is able to urinate well. No vomiting. No generalized abdominal pain stopped taking his pain medications about 5 days ago. ROS All systems reviewed and are negative except as per history of present illness. Medications Home Meds Reported Medications Guaifenesin* (Robitussin*) 100 Mg/5 Ml Syrup, 200 MG PO Q4H PRN for COUGH, ML 12/18/18 Terazosin Hcl* (Terazosin Hcl*) 10 Mg Capsule, 10 MG PO HS, CAP 12/18/18 Multivitamins* (Theragran*) 1 Tab Tab, 1 TAB PO DAILY, TAB 12/18/18 Levetiracetam* (Keppra*) 500 Mg Tablet, 500 MG PO BID, TAB 12/18/18 Finasteride* (Finasteride*) 5 Mg Tablet, 5 MG PO DAILY, TAB 12/18/18 Fluticasone Furoate (Arnuity Ellipta) 200 Mcg Blst.w.dev, 200 MCG INHALATION DAILY, #1 INHALER 12/18/18 Auzooodqpyb-S-Ozkofjnmtf Hb* (Guaifenesin* DM Syrup) 120 Ml Syrup, 10 ML PO Q4H PRN for COUGH, ML 12/18/18 Acetaminophen* (Acetaminophen*) 500 MG Extra Strength Tablet, 1000 MG PO Q8 PRN for PAIN AND OR ELEVATED TEMP, TAB 12/18/18 Fluticasone Propionate* (Fluticasone Propionate* Nasal) 50 Mcg/[place] - 16 Gm [place].susp, 1 SPRAY NASAL DAILY, #1 BOTTLE TO EACH NOSTRIL 11/06/16 Albuterol Sulfate* (Ventolin HFA*) 18 Gm Hfa.aer.ad, 2 PUFF INHALATION Q4H, #1 INHALER 11/06/16 Naproxen* (Naproxen*) 500 Mg Tablet, 500 MG PO BID PRN for PAIN AND/OR INFLAMMATION, TAB 10/24/15 Allergies Allergies: Coded Allergies: cinnamon (Verified Allergy, Intermediate, INFECTION, 12/27/18) cocaine (Verified Allergy, Intermediate, INFECTION, 12/27/18) ibuprofen (Verified Allergy, Mild, 12/27/18) PMhx/Soc History of Surgery: Yes (left inguinal hernia, nose,eyes,cholecystectomy, ear) Anesthesia Reaction: No Hx Neurological Disorder: Yes (depression,seizures) Hx Respiratory Disorders: Yes (asthma) Hx Cardiac Disorders: No Hx Psychiatric Problems: No Hx Miscellaneous Medical Probl: Yes (seasonal allergies) Hx Alcohol Use: Yes (sometimes last dose 10 days ) Hx Substance Use: Yes (marijuana sometimes, last dose 10 days ago) Hx Tobacco Use: Yes Smoking Status: Current every day smoker FmHx Family History: No diabetes Physical Exam Vitals Vital Signs Date Temp Pulse Resp B/P (MAP) Pulse Ox O2 O2 Flow FiO2 Time Delivery Rate 12/27/18 96.7 79 18 148/93 98 10:02 (111) Physical Exam Const: No acute distress Head: Atraumatic Eyes: Normal Conjunctiva ENT: Normal External Ears, Nose and Mouth. Neck: Full range of motion. No meningismus. Resp: Clear to auscultation bilaterally Cardio: Regular rate and rhythm, no murmurs Abd: Soft, non tender, non distended. Normal bowel sounds Skin: No petechiae or rashes incision on the right lower quadrant abdomen appears clean dry intact with no surrounding erythema drainage or pus Back: No midline or flank tenderness Ext: No cyanosis, or edema Neur: Awake and alert Psych: Normal Mood and Affect Result Diagram: 12/27/18 1027 12/27/18 1027 Results 24 hrs Laboratory Tests Test 12/27/18 10:27 White Blood Count 8.2 10^3/ul Red Blood Count 4.38 10^6/ul Hemoglobin 14.0 g/dl Hematocrit 41.5 % Mean Corpuscular Volume 94.7 fl Mean Corpuscular Hemoglobin 32.0 pg Mean Corpuscular Hemoglobin Concent 33.7 g/dl Red Cell Distribution Width 11.8 % Platelet Count 337 10^3/UL Mean Platelet Volume 9.3 fl Immature Granulocytes % 0.400 % Neutrophils % 74.2 % Lymphocytes % 15.7 % Monocytes % 8.0 % Eosinophils % 1.3 % Basophils % 0.4 % Nucleated Red Blood Cells % 0.0 /100WBC Immature Granulocytes # 0.030 10^3/ul Neutrophils # 6.1 10^3/ul Lymphocytes # 1.3 10^3/ul Monocytes # 0.7 10^3/ul Eosinophils # 0.1 10^3/ul Basophils # 0.0 10^3/ul Nucleated Red Blood Cells # 0.0 10^3/ul Urine Color YELLOW Urine Clarity CLEAR Urine pH 5.0 Urine Specific [place] 1.020 Urine Ketones NEGATIVE mg/dL Urine Nitrite NEGATIVE mg/dL Urine Bilirubin NEGATIVE mg/dL Urine Urobilinogen 2+ mg/dL Urine Leukocyte Esterase NEGATIVE Sharmin/ul Urine Microscopic RBC 0 /HPF Urine Microscopic WBC 1 /HPF Urine Mucus FEW /HPF Urine Hemoglobin 1+ mg/dL Urine Glucose NEGATIVE mg/dL Urine Total Protein NEGATIVE mg/dl Sodium Level 140 mmol/L Potassium Level 4.2 mmol/L Chloride Level 104 mmol/L Carbon Dioxide Level 30 mmol/L Anion Gap 6 Blood Urea Nitrogen 16 mg/dl Creatinine 0.63 mg/dl Est Glomerular Filtrat Rate mL/min > 60 mL/min Glucose Level 100 mg/dl Calcium Level 9.2 mg/dl Total Bilirubin 0.5 mg/dl Direct Bilirubin 0.00 mg/dl Indirect Bilirubin 0.5 mg/dl Aspartate Amino Transf (AST/SGOT) 25 IU/L Alanine Aminotransferase (ALT/SGPT) 26 IU/L Alkaline Phosphatase 96 IU/L Total Protein 6.8 g/dl Albumin 3.8 g/dl Globulin 3.00 g/dl Albumin/Globulin Ratio 1.26 Lipase 114 U/L Current Medications Medications Dose Sig/Adilene Start Time Status Last (Trade) Ordered Route PRN Stop Time Admin Dose Reason Admin Sodium 500 ml @ Q1H STAT 12/27/18 DC 12/27/18 Chloride 500 mls/hr IV 10:14 10:30 12/27/18 11:13 Morphine 4 mg ONCE STAT 12/27/18 DC 12/27/18 Sulfate IV 10:14 10:30 (morphine) 12/27/18 10:15 Iohexol 150 ml STK-MED 12/27/18 DC 12/27/18 (Omnipaque ONCE .ROUTE 11: 11:41 300mg/ ml) 12/27/18 11:21 Sodium 100 ml @ ud STK-MED 12/27/18 DC 12/27/18 Chloride ONCE .ROUTE 11:42 12/27/18 11:21 Procedures/MDM Patient presents with abdominal pain, , has flatus , BM afebrile Patient is well appearing. Non acute abdominal exam. Low suspicion for AAA given no palpable mass . Low suspicion for mesenteric ischemia given pain not out of proportion to exam, and no major risk factors . Given exam and history, low suspicion for acute abdominal process, such as acute cholecystitis, pancreatitis, perforated viscus, atypical appendicitis or torsion. Bloodwork without evidence of severe metabolic derangement or infection. CT and physical exam low suspicion for infection or dehiscence at this time. Patient remains PO tolerant. Serial abdominal exam without increase in abdominal pain. CT shows small phlegmon inguinal hernia area. Will prescribe Keflex. Left message with patient's surgeon Dr. Gonzalez to inform him as well. Departure Diagnosis: Primary Impression: Cellulitis Condition: Stable NANDINI FERRO MD Dec 27, 2018 11:40
[2018-12-27 13:20] VITALS: BP 112/73; PULSE 78; RESP 18
[2018-12-27] MEDS ORDERED: ACETAMINOPHEN 325 MG TAB PO ONE (13:30)
== END 2018-12-27 14:08 | disposition home or self-care (01) ==
LOC: E/R 09:59
DX: L03.311 Cellulitis of abdominal wall (principal); J45.909 Unspecified asthma, uncomplicated; F17.210 Nicotine dependence, cigarettes, uncomplicated
CPT/HCPCS: 36415; 74177; 80053; 81001; 83690; 85025; 96374; J2270; J7040; Q9967; Z7502; Z7610